=== PATIENT | female | born 1965 | race African-American/Black ===

== ENCOUNTER 2022-06-20 13:37 | Emergency (ER) | payer OTHER, SELFPAY ==
--- NOTE | ~2022-06-20 | XR_ITS ---
XR shoulder RT min 2V DATE: 06/20/2022 14:32 INDICATION: Pain and vomiting right arm. No injury. TECHNIQUE: 4 views COMPARISON: None FINDINGS: Prominent degenerative disc disease at C5-6 and C6-7. Diffuse idiopathic skeletal hyperostosis of the thoracic spine. There is prominent calcification at the rotator cuff near its insertion, consistent with calcific ten dinitis. Normal alignment at the acromioclavicular and glenohumeral joints. No fracture, dislocation, perioste al reaction or bone destruction. IMPRESSION: Calcific tendinitis of the rotator cuff Reviewed, dictated and finalized at location B.
[2022-06-20 13:40] VITALS: BP 130/44; PULSE 78; RESP 18; TEMP 37.2; O2SAT 100
--- NOTE | 2022-06-20 16:44 | ED.UPPEXIN ---
HPI - Extremity Injury (Upper) General Chief Complaint: Extremity Injury, Upper Stated Complaint: right shoulder pain, carpal tunnel surgery x 2 wk Time Seen by Provider: 06/20/22 16:17 Source: patient Mode of arrival: ambulatory Limitations: no limitations History of Present Illness HPI narrative: This is a 56 year old female that presents to the ER for right shoulder pain ongoing over the last couple of days. Reports no known injury or trauma. The pain is worse with movement and relieved with rest. She is unable to lift her arm above 90 degrees due to pain. Denies fever, erythema, or numbness. Related Data Allergies Allergy/AdvReac Type Severity Reaction Status Date / Time Penicillins Allergy Hives Verified 06/20/22 16:08 Review of Systems Review of Systems: CONSTITUTIONAL: Denies fever MUSCULOSKELETAL: Reports joint pain, and myalgia. NEUROLOGIC: Denies numbness, or weakness. All systems reviewed & are unremarkable except as noted in HPI and below PMFSH Past Medical History Medical History (Updated 06/20/22 @ 17:00 by Sharon Eller PA-C) History of anxiety Social History Social History (Updated 06/20/22 @ 17:01 by Sharon Eller PA-C) Substance use: never Exam Narrative: GENERAL: Well-appearing, well-nourished, and in no acute distress. HEAD: Normocephalic, atraumatic. EYES: EOMI. EXTREMITIES: Decreased active range of motion in the right shoulder above 90 degrees due to pain. No edema, erythema or obvious deformity. Normal radial pulse. Normal sensation SKIN: Warm, dry, no rash. NEURO: No focal deficits. Alert and oriented x3. PSYCH: Normal mood and affect Course Vital Signs Vital signs: Vital Signs Temperature 99.0 F 06/20/22 13:40 Pulse Rate 78 06/20/22 13:40 Respiratory Rate 18 06/20/22 13:40 Blood Pressure 130/44 L 06/20/22 13:40 Pulse Oximetry 100 06/20/22 13:40 Oxygen Delivery Room Air 06/20/22 13:40 Temperature 99.0 F 06/20/22 13:40 Pulse Rate 78 06/20/22 13:40 Respiratory Rate 18 06/20/22 13:40 Blood Pressure 130/44 L 06/20/22 13:40 Pulse Oximetry 100 06/20/22 13:40 Oxygen Delivery Room Air 06/20/22 13:40 MDM - Extremity Injury (Upper) MDM Narrative Medical decision making narrative: Patient presents to the emergency department for right shoulder pain ongoing over the last couple of days. No recent injury or trauma. Patient is neurovascularly intact. Right shoulder x-ray shows calcific tendinitis of the rotator cuff. Patient was updated on case findings. Instructed to rest, ice and take [id number] pain medication as needed. Patient reports she is from [place]. Is to follow up with orthopedics back home. She was given warnings to return to the ER Imaging Data Radiologist's impression: ITS Impressions Shoulder X-Ray 06/20/22 14:33 IMPRESSION: Calcific tendinitis of the rotator cuff Critical Care Time Critical Care Time Critical Care Time: No Discharge Plan Discharge Clinical Impression: Calcific tendonitis Patient Disposition: Home, Self-Care Condition: Stable Instructions: Rotator Cuff Tendinitis (ED) Additional Instructions: Return to the ER if you experience fever, redness and swelling of your arm, weakness, numbness, or any other symptoms that are concerning to you Rest, use ice/heat, take anti-inflammatories (Aleve, Ibuprofen, Naproxen, etc) or Tylenol as needed for pain Follow up with orthopedics Follow-up/Referrals: UNKNOWN,DOCTOR [Primary Care Provider] -
[2022-06-20 17:40] VITALS: BP 139/62; PULSE 66; RESP 14; O2SAT 100
== END 2022-06-20 17:42 | disposition home or self-care (01) ==
PROVIDERS: Emergency Provider Emergency Medicine
DX: M75.31 Calcific tendinitis of right shoulder (principal); Z98.890 Other specified postprocedural states
CPT/HCPCS: 73030; 99283; A4565